=== PATIENT | female | born 2000 | race Caucasian/White ===

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

== ENCOUNTER 2018-03-14 15:27 | Emergency (ER) | payer MEDICAID ==
[2018-03-14 15:27] VITALS: O2SAT 98
[2018-03-14 16:27] VITALS: RESP 20; TEMP 96.7
[2018-03-14 16:45] VITALS: BP 110/77; PULSE 84
== END 2018-03-14 16:58 | disposition home or self-care (01) | DRG 999 ==
LOC: ED 15:27
DX: X78.8XXA Intentional self-harm by other sharp object, initial encounter (principal); S61.412A Laceration without foreign body of left hand, initial encounter
CPT/HCPCS: 12001; 99283; G0168; A6402

== ENCOUNTER 2018-04-03 15:02 | Emergency (ER) | payer MEDICAID, OTHER ==
[2018-04-03 15:43] LABS: APPEARANCE,URINE Clear; BILIRUBIN,URINE NEGATIVE (NEGATIVE); COLOR,URINE Yellow; GLUCOSE, URINE (UA) NEGATIVE (NEGATIVE); KETONES,URINE NEGATIVE (NEGATIVE); LEUKOCYTE ESTERASE ,URINE NEGATIVE (NEGATIVE); NITRATE,URINE NEGATIVE (NEGATIVE); OCCULT BLOOD,URINE 2+ (NEG-TRACE); UROBILINOGEN,URINE 0.2 (0.2-1.0 EU)
[2018-04-03 15:50] LABS: HEMATOCRIT 37 % (35-47); HEMOGLOBIN 12.9 gm/dl (12.0-15.5); MEAN CORPUSCULAR HEMOGLOBIN 31.5 pg (27.0-32.0); MEAN CORPUSCULAR HGB CONC 35.1 gm/dl (32.0-36.0); MEAN CORPUSCULAR VOLUME 90 fL (81-99)
[2018-04-03 15:59] LABS: ALBUMIN 3.2 gm/dl (3.4-5.0); ALKALINE PHOSPHATASE 68 IU/L (46-116); ALT 16 IU/L (14-63); AST 26 IU/L (15-37); BILIRUBIN,TOTAL 0.2 mg/dl (0.2-1.0); BLOOD UREA NITROGEN 15 mg/dl (7-18); CALCIUM 8.9 mg/dl (8.5-10.1); CARBON DIOXIDE 27.1 mEq/L (21-32); CHLORIDE 104 mMol/L (98-107); CREATININE 0.72 mg/dl (0.60-1.00); GLOM FILT RATE 104 mL/min (>60); GLUCOSE 81 mg/dl (74-106); POTASSIUM 4.1 mMol/L (3.5-5.1); SALICYLATE < 2.8 mg/dl (2.8-30.0); SODIUM 140 mMol/L (136-145); THYROID STIMULATING HORMONE 5.512 uIU/ml (0.358-3.740); TOTAL PROTEIN 7.5 gm/dl (6.4-8.2)
[2018-04-03 16:00] LABS: ACETAMINOPHEN < 2 ug/ml (10-30); ALCOHOL < 0.003 gm/dl (0.000-0.08)
[2018-04-03 16:01] LABS: RBC,URINE 25-35 (0-3AV/HPF); WBC,URINE 0-2 (0-5AV/HPF)
[2018-04-03 16:02] LABS: AMPHETAMINES NEGATIVE (NEGATIVE); BACTERIA TRACE (< 1+); BARBITUATES NEGATIVE (NEGATIVE); BENZODIAZEPINES NEGATIVE (NEGATIVE); CANNABINOL(THC) NEGATIVE (NEGATIVE); COCAINE(COC) NEGATIVE (NEGATIVE); CRYSTALS NEGATIVE (0-3 AVE/HPF); EPITHELIAL CELLS 0-2 (SQUAMOUS); METHADONE NEGATIVE (NEGATIVE); METHAMPHETAMINES NEGATIVE (NEGATIVE); OPIATES(OP13) NEGATIVE (NEGATIVE); OXYCODONE(OXY) NEGATIVE (NEGATIVE); PROPOXYPHENE(PPX) NEGATIVE (NEGATIVE); TRICYCLIC ANTIDEPRESSANTS POSITIVE (NEGATIVE)
[2018-04-03 16:57] VITALS: O2SAT 97
[2018-04-03 22:26] VITALS: BP 118/76; PULSE 94; RESP 20; TEMP 98.4
== END 2018-04-03 22:17 | DRG 880 ==
LOC: ED 15:02
DX: R45.851 Suicidal ideations (principal)
CPT/HCPCS: 36415; 80053; 80305; 80307; 81001; 83735; 84443; 84703; 85025; 85027; 99283; 99285